=== PATIENT | male | born 1965 | race Caucasian/White ===

== ENCOUNTER 2018-03-25 20:36 | Emergency (ER) | payer BC, OTHER ==
[~2018-03-25] VITALS: Ht 172.7 cm; Wt 80.0 kg
[2018-03-25 20:43] VITALS: BP 147/101
[2018-03-25] MEDS ORDERED: DIPH,PERTUSS(ACELL),TET VAC/PF 0.5 ML IM-VACC ONE ×2 (21:00→21:04)
[2018-03-25] MEDS ORDERED: LIDOCAINE-MPF 1%, 5ML INFIL ONE (21:00)
[2018-03-25] MEDS ORDERED: BACITRACIN ZINC OINT 500U/GM, 0.9 GM ONE (21:49)
== END 2018-03-25 21:52 | disposition home or self-care (01) ==
LOC: ED 21:40
DX: S61.213A Laceration without foreign body of left middle finger without damage to nail, initial encounter (principal); W20.8XXA Other cause of strike by thrown, projected or falling object, initial encounter; Y93.89 Activity, other specified; Y92.009 Unspecified place in unspecified non-institutional (private) residence as the place of occurrence of the external cause; Y99.8 Other external cause status
CPT/HCPCS: 12041; 90471; 90715

== ENCOUNTER 2018-04-06 21:25 | Emergency (ER) | payer OTHER ==
[~2018-04-06] VITALS: Ht 180.3 cm; Wt 97.9 kg
[2018-04-06 21:27] VITALS: BP 142/98
[2018-04-06] MEDS ORDERED: SYNTHROID (21:30)
[2018-04-06] MEDS ORDERED: LIDOCAINE-MPF 1%, 5ML ONE (21:43)
[2018-04-06] MEDS ORDERED: BACITRACIN ZINC OINT 500U/GM, 0.9 GM ONE (22:08)
== END 2018-04-06 22:23 | disposition home or self-care (01) ==
LOC: ED 21:49
DX: S61.213A Laceration without foreign body of left middle finger without damage to nail, initial encounter (principal); X58.XXXA Exposure to other specified factors, initial encounter; Y93.89 Activity, other specified; Y99.8 Other external cause status; Y92.009 Unspecified place in unspecified non-institutional (private) residence as the place of occurrence of the external cause
CPT/HCPCS: 12001; 99283